=== PATIENT | female | born 1985 | race Caucasian/White ===

== ENCOUNTER 2016-10-08 13:18 | Emergency (ER) | payer OTHER ==
[2016-10-08 13:23] VITALS: TEMP 98; BMI 27.3
[2016-10-08] MEDS ORDERED: METHYLPREDNISOLONE 125 MG/2 ML VIAL IV ONE (13:33)
[2016-10-08] MEDS ORDERED: Albuterol/Ipratropium Neb 3 ML NEB NEB ONE (13:33)
--- NOTE | 2016-10-08 13:43 | EDPRACDOC ---
- General Information Chief Complaint: Adult Asthma Stated Complaint: TROUBLE BREATHING WHEEZING Time Seen by Provider: 10/08/16 13:34 Information Source: Patient Home Medications: Home Medications Albuterol Sulfate [Proair Hfa] 1 - 2 puff INH Q4H PRN 02/27/14 Cetirizine HCl [Zyrtec] 10 mg PO DAILY 02/27/14 Fluticasone/Salmeterol [Advair 500-50 Diskus] 1 inh INH BID 02/27/14 Albuterol/Ipratropium Neb [Duoneb] 3 ml NEB Q6H PRN #1 box 10/08/16 Levalbuterol HCl [Xopenex] 0.63 mg NEB DAILY PRN 10/08/16 Prednisone [Deltasone] 20 mg PO BID #6 tablet 10/08/16 Vits W-Ca,Fe,FA(<1Mg) [] 1 tab PO DAILY 10/08/16 Allergies/Adverse Reactions: Allergies Allergy/AdvReac Type Severity Reaction Status Date / Time Penicillins Allergy Mild RASH Verified 10/08/16 13:23 amoxicillin trihydrate Allergy Unknown Verified 10/08/16 13:23 [From Augmentin] erythromycin base Allergy Unknown Verified 10/08/16 13:23 [Erythromycin Base] potassium clavulanate Allergy Unknown Verified 10/08/16 13:23 [From Augmentin] - History of Present Illness Onset: [employer] HPI: PT STATES HAS ASTHMA AND WAS EXPOSED TO SPRAY PAINT AND HAD ONSET OF WHEEZING AND TIGHTNESS WITH BREATHING. Shortness of Breath: Moderate Relevant History: Reports: Asthma Cough: Reports: Non-productive Rhinorrhea: Reports: None Ear Symptoms: Reports: None SOB Worsens with: Reports: Nothing SOB Improves with: Reports: Nothing Associated Signs and symptoms: Reports: Cough (WHEEZING AND TIGHTNESS IN CHEST) ED Past Medical History - History Reviewed Yes Nurses notes reviewed and agree except as marked Travel Outside of [place] in the Last 3 Months?: No - Patient Medical History Respiratory History: Reports: Asthma Surgical History: Denies: Hysterectomy - Social Medical History Smoking Status: Never smoker ETOH: None Substance Abuse: None Lives With: Other Lives In: Home EDM Review of Systems - Review of Systems ROS Negative Except as Marked: Yes All systems reviewed and were negative except as marked Constitutional: No Symptoms Reported. negative: Fever, Chills, Weakness, Fatigue, Loss of Appetite Eyes: No Symptoms Reported. negative: Redness, Blurred Vision, Double Vision, Discharge, Pain, Light Sensitive, Photophobia Ears: No Symptoms Reported. negative: Pain, Hearing Loss, Drainage, Ear Pulling Throat: No Symptoms Reported. negative: Pain, Swelling Nose: No Symptoms Reported. negative: Congestion, Bleeding, Discharge, Injection, Swelling, Deformity, Ecchymosis, Tender, Abrasion, Laceration Mouth: No Symptoms Reported. negative: Pain, Drooling Respiratory: Cough, Shortness of Breath, Wheezing. negative: Barky Cough, Brassy Cough, Hemoptysis Cardiovascular: No Symptoms Reported. negative: Chest Pain, Palpitations, Syncope, Edema, Orthopnea, PND, Skin Mottling, Cyanosis Gastrointestinal: No Symptoms Reported. negative: Pain, Constipation, Nausea, Vomiting, Diarrhea, Melena, Formula Intolerance Genitourinary: No Symptoms Reported. negative: Dysuria, Hematuria, Frequency, Discharge, Bleeding, Testicular Pain, Neurological: No Symptoms Reported. negative: Headache, Dizziness, Seizure, Numbness, Weakness, Speech Difficulty, Gait Difficulty Musculoskeletal: No Symptoms Reported. negative: Neck, Chestwall, Ribs, Back, Shoulder, Arm, Elbow, Forearm, Wrist, Hand, Pelvis, Hip, Femur, Knee, Leg, Ankle , Foot Integumentary: No Symptoms Reported. negative: Itching, Rash, Bruising, Wound Allergic/Immunologic: No Symptoms Reported. negative: Hives, Itching Hematologic: No Symptoms Reported. negative: Lymphadenopathy, Easy Bruising, Easy Bleeding Endocrine: No Symptoms Reported. negative: Weight Gain, Weight Loss Psychiatric: No Symptoms Reported. negative: Anxiety, Depression, Hallucinations, Insomnia, Suicidal - Physical Exam Constitutional: Alert (Awake), No apparent distress Oriented to: Time, Person, Place Last recorded Vital Signs: Last Vital Signs Temp 98 F 10/08/16 13:20 Pulse 106 10/08/16 13:31 Resp 24 10/08/16 13:34 BP 129/78 10/08/16 13:31 Pulse Ox 95 10/08/16 13:31 Oxygen Pulse Oxygen Saturation 95 O2 Device Room Air Oxygen Flow Rate Fraction of Inspired Oxygen ( FIO2) - HEENT Head: Normal ( normocephalic) Eye Exam: Normal (PERRL, EOMI, Sclera white) Oropharynx: Normal (Pharynx:Moist without exudate,Gums-no swelling) Tympanic Membrane: Normal ENT EAC: Normal TMJ: Normal Nose: No Symptoms Reported (septum midline) Neck: Normal (FROM, trachea at midline) - Respiratory/Cardiovascular Respiratory: Accessory Muscle Use, Tachypnea, Wheezes (BILATERAL) Cardiovascular: Tachycardia - GI Auscultation: Normal (NABS) Palpation: Normal (Soft,No rebound or guarding, non distended) Tenderness: Non tender Soares's Sign: Negative - Musculoskeletal Back: Normal (Non-Tender) Extremities: Normal (Normal tone, Pulses 2+ No cyanosis or edema, FROM) - Integumentary Skin: Normal, Warm, Dry Lymphatics: Normal (no adenopathy) - Neurologic Memory Impaired: Normal Motor Function: Normal (Normal tone, Pulses 2+ No cyanosis or edema, FROM) Cranial Nerve: Normal (CN II-X11 intact sensation, strength 5/5) Cerebellar: Normal Mood Description: Normal Perception: Normal ED SOB MDM - Differential Diagnosis Differential Diagnosis: Asthma, Other (ACUTE EXACERBATION OF ASTHMA SECONDARY TO INHALED IRRITANT) - Re-evaluation Re-evaluation 1 Re-evaluation Time: 14:20 (PT STATES FEELING BETTER WHEEZING RESOLVING, PT MOVEING MORE AIR AND SEEMS MUCH MORE CALM. ) Re-evaluation 2 Re-evaluation Time: 15:26 (NO WHEEZING AT THIS TIME, PT STATES FEELS GREAT. ) Decision Time to Discharge: 15:27 - Departure Disposition: Home Condition: Stable Final Diagnosis: Acute asthma Instructions: Asthma (ED) Education/Counseling Given To: Patient Education/Counseling Given Regarding: Diagnosis, Treatment, Prognosis, Follow Up Referrals: Luisa Almeida MD [Primary Care Provider] - One Week Prescriptions: New Albuterol/Ipratropium Neb [Duoneb] 3 ml NEB Q6H PRN #1 box PRN Reason: Shortness Of Breath Prednisone [Deltasone] 20 mg PO BID #6 tablet No Action Fluticasone/Salmeterol [Advair 500-50 Diskus] 1 inh INH BID Albuterol Sulfate [Proair Hfa] 1 - 2 puff INH Q4H PRN PRN Reason: Shortness Of Breath Cetirizine HCl [Zyrtec] 10 mg PO DAILY Vits W-Ca,Fe,FA(<1Mg) [] 1 tab PO DAILY Levalbuterol HCl [Xopenex] 0.63 mg NEB DAILY PRN PRN Reason: Shortness Of Breath Additional Instructions: RETURN FOR WORSE OR DIFFERENT SYMPTOMS.
[2016-10-08] MEDS: ALBUTEROL 0.083% 3 ML NEB NEB SCH ×3 (13:58→14:09)
[2016-10-08 15:54] VITALS: BP 115/74; PULSE 75
== END 2016-10-08 15:50 | disposition home or self-care (01) ==
LOC: ED 13:18
DX: J45.909 Unspecified asthma, uncomplicated (principal)
CPT/HCPCS: 94640; 96374; 99284; J2930; J3490; J7620